=== PATIENT | male | born 1970 | race African-American/Black ===

== ENCOUNTER 2023-06-19 09:51 | Emergency (ER) | payer MEDICAID ==
[~2023-06-19] VITALS: Ht 180.3 cm; Wt 96.7 kg
[2023-06-19 11:09] VITALS: BP 131/89; PULSE 101; RESP 18; TEMP 99.2; O2SAT 97
[2023-06-19] MEDS ORDERED: DexAMETHasone SOD PHOS 10MG/1ML VIAL INJ PO ONE (12:15)
[2023-06-19] MEDS ORDERED: cefTRIAXone SOD 500 MG VL IM ONE (12:15)
[2023-06-19] MEDS ORDERED: ALBUAER3 IN (12:25)
[2023-06-19] MEDS ORDERED: METH4PAK PO (12:25)
[2023-06-19] MEDS ORDERED: PROM1SOL4 PO (12:25)
== END 2023-06-19 12:25 | disposition home or self-care (01) ==
LOC: ER 09:51
DX: J40 Bronchitis, not specified as acute or chronic (principal); R07.89 Other chest pain
CPT/HCPCS: 71045; 96372; 99283; J0696; J1100